=== PATIENT | male | born 1970 | race Caucasian/White ===

== ENCOUNTER 2018-01-27 03:38 | Emergency (ER) | payer OTHER ==
[~2018-01-27] VITALS: Ht 177.8 cm; Wt 195.0 kg
[~2018-01-27 03:38] MED LIST: ASPIR-TRIN325 M1 PO; ZANTAC150 MG PO; Zantac PO
[2018-01-27 03:40] VITALS: BP 152/79
== END 2018-01-27 05:10 | disposition left against medical advice (07) ==
LOC: EME 03:38
DX: J02.9 Acute pharyngitis, unspecified (principal); Z53.21 Procedure and treatment not carried out due to patient leaving prior to being seen by health care provider

== ENCOUNTER 2018-01-27 07:16 | Emergency (ER) | payer OTHER ==
[~2018-01-27] VITALS: Ht 177.8 cm; Wt 197.4 kg
[2018-01-27 09:37] VITALS: BP 128/70
== END 2018-01-27 09:38 | disposition home or self-care (01) ==
LOC: EME 07:16
DX: J02.0 Streptococcal pharyngitis (principal); J35.1 Hypertrophy of tonsils
CPT/HCPCS: 87651 90; 99281; 99284; J0561; J1100